=== PATIENT | female | born 1945 | race Caucasian/White ===

== ENCOUNTER 2019-11-12 18:11 | Emergency (ER) | payer MEDICARE, BC ==
--- NOTE | 2019-11-12 18:32 | EDM.PDOC ---
ED HPI GENERAL MEDICAL PROBLEM - General Chief Complaint: Cardiovascular Problem Stated Complaint: hypertension, vomiting Time Seen by Provider: 11/12/19 18:20 Source of Information: Reports: Patient, Family (Granddaughter, Cyndy), Old Records ([facility] chart/EMR) History Limitations: Reports: No Limitations - History of Present Illness INITIAL COMMENTS - FREE TEXT/NARRATIVE: The patient was brought to the emergency room via private automobile by her granddaughter for evaluation of non-specific nausea and recurrent emesis possibly secondary to food poisoning in the evening of 11/10/2019. Patient did eat some shrimp in [place] on that day with beginning nonspecific abdominal cramping associated with 6 episodes of emesis starting at about 11:30 AM on 11/10. She has not been able to tolerate solids since that time and did not take her medications today secondary to her emesis. She has been able to tolerate vandana ellie, although she did have one episode of emesis at 1500 hours this afternoon with no history of hematemesis, etc. The patient denies any current pain or discomfort. No recent history of abdominal pain, heartburn, diarrhea, melena, gross hematochezia, or any food intolerance, including fatty foods, etc. with 3 normal bowel movements yesterday. She denies any gross hematuria, colic, or other UTI symptoms. The patient denies any heart flutter, dizziness, orthostasis, orthopnea, diaphoresis, paresthesias, recent decreased exercise tolerance, or any other anginal-type symptoms, although she has had some nonspecific left chest "tickle" intermittently during the last few weeks, including at 3 PM this afternoon with no chest pain at this time. The patient also denies any recent fever, cough, wheezing, dyspnea, etc.. No history of possible COVID-19 exposure. Patient's blood pressure was elevated at 193/100 prior to arrival with this taken by her granddaughter, who is a nurse. Onset: Gradual Onset Date: 11/11/19 Onset Time: 11:30 Duration: Getting Worse Location: Reports: Chest, Abdomen. Denies: Head, Face, Neck, Back, Upper Extremity, Left, Upper Extremity, Right, Radiates to Quality: Reports: Ache, Same as Previous Episode Severity: Mild Improves with: Reports: None Worsens with: Reports: None Context: Reports: Other (As above). Denies: Sick Contact, Trauma Associated Symptoms: Reports: Chest Pain, Loss of Appetite, Nausea/Vomiting, Rash (Recent poison nay a couple weeks ago now resolved). Denies: Confusion, Cough, Diaphoresis, Fever/Chills, Headaches, Malaise, Shortness of Breath, Syncope, Weakness Treatments [employer]: Reports: Other (see below) (None) - Related Data Allergies Allergy/AdvReac Type Severity Reaction Status Date / Time Sulfa (Sulfonamide Allergy Cannot Verified 11/12/19 18:13 Antibiotics) Remember Home Meds: Home Meds Ascorbate Calcium [Vitamin C] 500 mg PO DAILY 09/02/13 [History] Aspirin [Amanda Chewable Aspirin] 81 mg PO DAILY 09/02/13 [History] Calcium Carb/Vitamin D3/Vit K1 [Viactiv Soft Chew] 2 each PO DAILY 09/02/13 [History] Ferrous Sulfate [Iron] 325 mg PO DAILY 09/02/13 [History] Multivit-Min/FA/Lycopene/Lut [Centrum Silver] 1 each PO DAILY 09/02/13 [History] Naproxen Sodium [Aleve] 440 mg PO DAILY 09/02/13 [History] [place]-3/DHA/Epa/Fish Oil [Fish Oil Dr 500 mg Softgel] 500 mg PO DAILY 09/02/13 [History] amLODIPine Besylate [Amlodipine Besylate] 5 mg PO DAILY 09/02/13 [History] cycloSPORINE [Restasis] 1 drop EYEBOTH BID 09/02/13 [History] Cholecalciferol (Vitamin D3) [Vitamin D3] 2 tab PO DAILY 11/12/19 [History] Magnesium Oxide [Magnesium] 1 tab PO DAILY 11/12/19 [History] Red Yeast Rice 2 cap PO DAILY 11/12/19 [History] Venlafaxine [Effexor XR] 1 cap PO ASDIRECTED 11/12/19 [History] Vit A/Vit C/Vit E/Zinc/Copper [Preservision] 2 tab PO DAILY 11/12/19 [History] Past Medical History HEENT History: Reports: Hard of Hearing, Impaired Vision, Other (See Below). Denies: Allergic Rhinitis, Cataract, Glaucoma, Macular Degeneration, Otitis Me hermelindo, Retinal Detachment Other HEENT History: Patient wears glasses. Dry eye syndrome. Mild to moderate presbycusis with no current hearing aid therapy. Cardiovascular History: Reports: High Cholesterol, Hypertension, Other (See Below). Denies: Afib, Aneurysm, Arrhythmia, Blood Clots/VTE/DVT, CAD, Cardiomyopathy, Heart Failure, Heart Murmur, MO, PVD, Syncope Other Cardiovascular History: Mild hyperlipidemia with excellent HDL currently diet controlled. Respiratory History: Reports: COPD, Other (See Below). Denies: Asthma, Bronchitis, Recurrent, Intubation, Previous, PE ( So I just have been getting occasional bronchitis), Pneumonia, Recurrent, Pneumothorax, Sleep Apnea, TB Other Respiratory History: Stable chest x-ray with no current medical therapy required. Gastrointestinal History: Reports: Colon Polyp, Diverticulosis, Other (See B amadeo). Denies: Celiac Disease, Cholelithiasis, Chronic Constipation, Chronic Diarrhea, Fecal Incontinence, Gastritis, GERD, GI Bleed, Inflammatory Bowel Disease, Irritable Bowel Syndrome, Jaundice Other Gastrointestinal History: Hyperplastic colonic polyp at 7 cm on 01/11/2009. Genitourinary History: Reports: None. Denies: Acute Renal Failure, Chronic Renal Insuffiency, Renal Calculus, Retention, Urinary, STD, Urinary Incontinence, UTI, Recurrent PLASTICATOR History: Reports: . Denies: Dysfunctional Uterine Bleeding, Endometriosis, Fibroids, Polycystic Ovaries, Spontaneous : 4 Para: 4 LMP (Approximate): Other (See Below) Other PLASTICATOR History: Menopause at about age 44. Full term without complications during pregnancies or deliveries Musculoskeletal History: Reports: Arthritis, Back Pain, Chronic, Fracture, Osteoarthritis, Osteoporosis, Other (See Below). Denies: Amputation, Gout, Neck Pain, Chronic, RA, SLE Other Musculoskeletal History: Moderate lumbar scoliosis with left-sided sciatica. Open tuft fracture of digit #2 of the left hand on 09/02/2013. Right ankle fracture in about 2009 with no surgery required. Neurological History: Reports: Headaches, Chronic, Migraines. Denies: Alzheimers Disease, Cerebral Aneurysms, Concussion, CVA, Head Trauma, MS, Neuropathy, Diabetic, Neuropathy, Peripheral, Parkinson's, Seizure, TIA Psychiatric History: Reports: Anxiety, Depression. Denies: Abuse, Victim of, ADD, ADHD, Addiction, Psych Hospitalization(s), Psychosis, PTSD, Suicide Attempt, Suicidal Ideation Endocrine/Metabolic History: Reports: Hypomagnesemia, Osteopenia, Osteoporosis. Denies: Diabetes, Gestational, Diabetes, Type I, Diabetes, Type II, Diabetes Mellitus, Type 3c, Hypothyroidism, IDDM Hematologic History: Reports: Anemia, Iron Deficiency. Denies: Blood Transfusion(s) Immunologic History: Reports: None. Denies: AIDS, HIV, SLE Oncologic (Cancer) History: Reports: None. Denies: Basal Cell Carcinoma, Breast, Cervix, Colon, Hodgkin's Lymphoma, Leukemia, Lymphoma, Malignant Melanoma, Non-Hodgkin's Lymphoma, Ovarian, Squamous Cell Carcinoma, Uterine Dermatologic History: Reports: None. Denies: Eczema, Psoriasis - Infectious Disease History Infectious Disease History: Reports: Chicken Pox, Measles, Mumps. Denies: C- Difficile, Meningitis, Mononucleosis, MRSA, Pertussis (Whooping Cough), Rheumatic Fever, Rubella, Scarlet Fever, Shingles, TB, VRE - Past Surgical History Head Surgeries/Procedures: Reports: None HEENT Surgical History: Reports: Oral Surgery, Other (See Below). Denies: Adenoidectomy, Eye Surgery, Laser Surgery, LASIK, Myringotomy w Tube(s), Naso- Sinus Surgery, Tonsillectomy Other HEENT Surgeries/Procedures: [place] teeth extraction x4 at about age 17 with additional tooth extractions. Cardiovascular Surgical History: Reports: None. Denies: Varicose Respiratory Surgical History: Reports: None. Denies: Thoracentesis GI Surgical History: Reports: Colonoscopy, Polypectomy, Other (See Below). Denies: Appendectomy, Cholecystectomy, EGD, Hernia, Abdominal, Hernia, Inguinal, Hernia Repair/Other Other GI Surgeries/Procedures: Colonoscopy on 01/11/2009. Female Surgical History: Reports: None. Denies: Breast Biopsy, Section, Hysterectomy, Salpingo-Oophorectomy, Tubal Ligation Endocrine Surgical History: Reports: None. Denies: Thyroid Biopsy Neurological Surgical History: Reports: None. Denies: C-Spine, Discectomy, Laminectomy, Lumbar Spine, Sacral Spine, Spinal Fusion, Thoracic Spine, Vertebroplasty Musculoskeletal Surgical History: Reports: Carpal Tunnel, Other (See Below). Denies: Arthroscopic Procedure, Ganglion Cyst, Joint Replacement, ORIF, Shoulder Replacement, Shoulder Surgery Other Musculoskeletal Surgeries/Procedures:: Right carpal tunnel release in about 2017. Oncologic Surgical History: Reports: None Dermatological Surgical History: Reports: None - Past Imaging History Past Imaging History: Reports: Carotid US (09/02/2017.), CAT Scan (CT scan of the head on 09/02/2017 and 10/09/2014.), DEXA Scan (02/21/2009.), Mammogram (Last mammogram on 10/08/2018.), Venous Doppler (Negative venous Doppler studies of the right leg on 11/13/2017.) Social & Family History - Tobacco Use Smoking Status *Q: Never Smoker Tobacco Use Within Last Twelve Months: No Used Tobacco, but Quit: No Smoking Cessation Information Provided To Patient: No Second Hand Smoke Exposure: No Second Hand Smoke Education Provided: No - Caffeine Use Caffeine Use: Reports: None. Denies: Coffee, Energy Drinks, Soda, Tea - Alcohol Use Alcohol Use History: Yes Days Per Week of Alcohol Use: 2 Number of Drinks Per Day: 1 Number of Drinks Per Day Comment: Usually beer. No previous DWIs, problems with alcohol abuse, etc. Total Drinks Per Week: 2 Alcohol Use in Last Twelve Months: Yes - Recreational Drug Use Recreational Drug Use: No Drug Use in Last 12 Months: No Recreational Drug Type: Denies: Amphetamines (Speed), Cocaine, Heroin, Inhalants (Glues, Solvents, Aerosols), LSD (Acid), Marijuana/Hashish, Methamphetamine, Oxycodone - Living Situation & Occupation Living situation: Reports: , with Family () Occupation: Retired (Retired grocery worker.) ED ROS GENERAL - Review of Systems Review Of Systems: Comprehensive ROS is negative, except as noted in HPI. ED EXAM, GENERAL - Physical Exam Exam: See Below Exam Limited By: No Limitations General Appearance: Alert, WD/WN, No Apparent Distress Eye Exam: Bilateral Eye: EOMI, Normal Inspection (Patient wearing glasses. No nystagmus), PERRL Ears: Normal External Exam, Normal Canal, Normal TMs, Hearing Loss (Mild to moderate bilateral presbycusis) Nose: Normal Inspection, Normal Mucosa, No Blood Throat/Mouth: Normal Inspection, Normal Lips, Normal Teeth (Multiple missing teeth), Normal Gums, Normal Oropharynx, Normal Voice, No Airway Compromise. No: Dysphagia, Perioral Cyanosis Head: Atraumatic, Normocephalic. No: Facial Swelling, Facial Tenderness, Sinus Tenderness Neck: Supple, Non-Tender, Full Range of Motion, Carotid Bruit (Mild bilateral carotid bruits). No: Lymphadenopathy (L), Lymphadenopathy (R), Thyromegaly Respiratory/Chest: No Respiratory Distress, Lungs Clear, Normal Breath Sounds, No Accessory Muscle Use, Chest Non-Tender. No: Pleural Rub, Retractions Cardiovascular: Normal Peripheral Pulses, Regular Rate, Rhythm, No Edema, No Gallop, No JVD, No Murmur, No Rub. No: Gallop/S3, Gallop/S4, Friction Rub Peripheral Pulses: 2+: Brachial (L), Brachial (R), Dorsalis Pedis (L), Dorsalis Pedis (R) GI/Abdominal: Soft, Non-Tender, No Organomegaly, No Distention, No Abnormal Bruit, No Mass, Abnormal Bowel Sounds (Mild diffuse increased bowel sounds not high-pitched in nature). No: Guarding, Rigid, Rebound (Female) Exam: Deferred Rectal (Female) Exam: Deferred Back Exam: Full Range of Motion, Other (Moderate lumbar scoliosis). No: CVA Tenderness (L), CVA Tenderness (R), Muscle Spasm, Paraspinal Tenderness, Vertebral Tenderness Extremities: Normal Inspection, Normal Range of Motion, Non-Tender, No Pedal Edema, Normal Capillary Refill. No: Marcel's Sign Neurological: Alert, Oriented, CN II-XII Intact, Normal Cognition, Normal Gait, Normal Reflexes (Negative Babinski's), No Motor/Sensory Deficits Psychiatric: Normal Affect, Normal Mood Skin Exam: Warm, Dry, Intact, Normal Color, Rash (Old mild evidence of poison nay over right radial distal region with no evidence of infection). No: Diaphoretic, Ecchymosis, Erythema, Wound/Incision Lymphatic: No Adenopathy EKG INTERPRETATION EKG Date: 11/12/19 Time: 18:50 Rhythm: NSR Rate (Beats/Min): 69 [place]: Normal (Left cardiac axis) P-Wave: Enlarged (Moderate diffuse biphasic P waves) QRS: Normal (Mild repolarization changes with QRS interval of 0.[address]-T: Normal QT: Normal [place]/PQ Interval: Extreme poor R wave progression in the anterior leads. Comparison: NA - No Prior EKG (No recent EKG for comparison) EKG Interpretation Comments: 1. No acute ischemic changes 2. Left atrial enlargement 3. Repolarization changes Course - Vital Signs Last Recorded V/S: Last Vital Signs Temp 36.8 C 11/12/19 18:23 Pulse 72 11/12/19 19:59 Resp 17 11/12/19 19:59 BP 164/88 H 11/12/19 19:59 Pulse Ox 100 11/12/19 19:59 Vital Signs - 24 hr 11/12/19 11/12/19 11/12/19 18:23 18:30 19:58 Temperature [ 36.8 C Oral] Pulse, 79 75 72 Peripheral [ Pulse Oximetry] Respiratory 18 Rate Blood Pressure 196/88 H 162/84 H 164/99 H [Right Upper Arm] O2 Sat by Pulse 99 99 100 Oximetry 11/12/19 19:59 Temperature [ Oral] Pulse, 72 Peripheral [ Pulse Oximetry] Respiratory 17 Rate Blood Pressure 164/88 H [Right Upper Arm] O2 Sat by Pulse 100 Oximetry - Orders/Labs/Meds Orders: Active Orders 24 hr Category Date Time Status Cardiac Monitoring [RC] . DIRECTED Care 11/12/19 18:35 Active EKG Documentation Completion [RC] ASDIRECTED Care 11/12/19 18:35 Active Peripheral IV Care [RC] . DIRECTED Care 11/12/19 18:34 Active Nothing Per Oral Diet [DIET] Diet 11/12/19 Breakfast Active Abdomen Series w Chest 1V [CR] Stat Exams 11/12/19 18:33 Taken Sodium Chloride 0.9% [Saline Flush] Med 11/12/19 18:33 Active 10 ml FLUSH ASDIRECTED PRN Obtain Past Medical Record [OM.PC] Urgent Oth 11/12/19 18:33 Active Peripheral IV Insertion Adult [OM.PC] Stat Oth 11/12/19 18:33 Ordered Resuscitation Status Stat Resus Stat 11/12/19 18:33 Ordered Medication Orders Sodium Chloride (Saline Flush) 10 ml FLUSH ASDIRECTED PRN PRN Reason: Keep Vein Open Last Admin: 11/12/19 18:50 Dose: 10 ml Documented by: Admin: 11/12/19 18:44 Dose: 10 ml Documented by: SILVESTRE Labs: Laboratory Tests 11/12/19 11/12/19 11/12/19 Range/Units 18:45 18:45 18:45 WBC 6.3 (4.0-10.2) K/uL RBC 4.37 (3.77-5.09) M/uL Hgb 12.7 (11.7-15.5) g/dL Hct 38.1 (34.0-46.0) % MCV 87.2 (84.0-98.0) fL MCH 29.1 (28.2-33.3) pg MCHC 33.3 (31.7-36.0) g/dL RDW 12.5 (11.2-14.1) % Plt Count 261 (150-350) K/uL Neut % (Auto) 64.2 (45.0-80.0) % Lymph % (Auto) 25.4 (10.0-50.0) % [place] % (Auto) 7.5 (2.0-14.0) % Eos % (Auto) 2.4 (0.0-5.0) % Baso % (Auto) 0.5 (0.0-2.0) % Neut # (Auto) 4.03 (1.40-7.00) K/uL Lymph # (Auto) 1.59 (0.50-3.50) K/uL [place] # (Auto) 0.47 (0.00-1.00) K/uL Eos # (Auto) 0.15 (0.00-0.50) K/uL Baso # (Auto) 0.03 (0.00-0.20) K/uL PT 10.5 (9.5-12.0) SEC INR 1.0 APTT 23.7 L (24.5-32.8) SEC Sodium (136-145) mmol/L Potassium (3.5-5.1) mmol/L Chloride (98-107) mmol/L Carbon Dioxide (21.0-32.0) mmol/L BUN (7-18) mg/dL Creatinine (0.51-1.17) mg/dL Est Cr Clr Drug Dosing mL/min Estimated GFR (MDRD) mL/min Glucose (74-106) mg/dL Lactic Acid (0.4-2.0) mmol/L Uric Acid (2.6-7.2) mg/dL Calcium (8.5-10.1) mg/dL Magnesium (1.8-2.4) mg/dL Total Bilirubin (0.2-1.0) mg/dL AST (15-37) U/L ALT (12-78) U/L Alkaline Phosphatase (46-116) IU/L Creatine Kinase (26-308) U/L Creatine Kinase Index (0.0-2.5) % CK-MB (CK-2) (0.00-3.60) ng/mL Troponin I (0.000-0.056) ng/mL NT-Pro-B Natriuret Pep (0-125) pg/mL Total Protein (6.4-8.2) g/dL Albumin (3.4-5.0) g/dL Amylase 36 (25-115) U/L Lipase (73-393) U/L 11/12/19 11/12/19 Range/Units 18:45 18:45 WBC (4.0-10.2) K/uL RBC (3.77-5.09) M/uL Hgb (11.7-15.5) g/dL Hct (34.0-46.0) % MCV (84.0-98.0) fL MCH (28.2-33.3) pg MCHC (31.7-36.0) g/dL RDW (11.2-14.1) % Plt Count (150-350) K/uL Neut % (Auto) (45.0-80.0) % Lymph % (Auto) (10.0-50.0) % [place] % (Auto) (2.0-14.0) % Eos % (Auto) (0.0-5.0) % Baso % (Auto) (0.0-2.0) % Neut # (Auto) (1.40-7.00) K/uL Lymph # (Auto) (0.50-3.50) K/uL [place] # (Auto) (0.00-1.00) K/uL Eos # (Auto) (0.00-0.50) K/uL Baso # (Auto) (0.00-0.20) K/uL PT (9.5-12.0) SEC INR APTT (24.5-32.8) SEC Sodium 140 (136-145) mmol/L Potassium 3.9 (3.5-5.1) mmol/L Chloride 103 (98-107) mmol/L Carbon Dioxide 28.7 (21.0-32.0) mmol/L BUN 12 (7-18) mg/dL Creatinine 0.75 (0.51-1.17) mg/dL Est Cr Clr Drug Dosing 48.91 mL/min Estimated GFR (MDRD) > 60 mL/min Glucose 113 H (74-106) mg/dL Lactic Acid 1.0 (0.4-2.0) mmol/L Uric Acid 2.9 (2.6-7.2) mg/dL Calcium 9.2 (8.5-10.1) mg/dL Magnesium 2.2 (1.8-2.4) mg/dL Total Bilirubin 0.3 (0.2-1.0) mg/dL AST 16 (15-37) U/L ALT 24 (12-78) U/L Alkaline Phosphatase 95 (46-116) IU/L Creatine Kinase 73 (26-308) U/L Creatine Kinase Index 2.5 (0.0-2.5) % CK-MB (CK-2) 1.80 (0.00-3.60) ng/mL Troponin I 0.000 (0.000-0.056) ng/mL NT-Pro-B Natriuret Pep 89 (0-125) pg/mL Total Protein 7.3 (6.4-8.2) g/dL Albumin 3.9 (3.4-5.0) g/dL Amylase (25-115) U/L Lipase 63 L (73-393) U/L Meds: Medications Generic Name Dose Route Start Last Admin Trade Name Freq PRN Reason Stop Dose Admin Sodium Chloride 10 ml 11/12/19 18:33 11/12/19 18:50 Saline Flush FLUSH 10 ml ASDIRECTED PRN Administration Keep Vein Open Discontinued Medications Generic Name Dose Route Start Last Admin Trade Name Freq PRN Reason Stop Dose Admin Famotidine 40 mg 11/12/19 18:33 11/12/19 18:43 Pepcid IVPUSH 11/12/19 18:34 40 mg ONETIME ONE Administration Lactated Ringer's 1,000 mls @ 999 mls/hr 11/12/19 18:33 11/12/19 18:37 Ringers, Lactated IV 11/12/19 19:33 999 mls/hr .BOLUS ONE Administration Ondansetron HCl 4 mg 11/12/19 18:33 11/12/19 18:43 Zofran IVPUSH 11/12/19 18:34 4 mg ONETIME ONE Administration Pantoprazole Sodium 40 mg 11/12/19 18:33 11/12/19 18:43 Protonix Iv IVPUSH 11/12/19 18:34 40 mg ONETIME ONE Administration - Radiology Interpretation Free Text/Narrative:: customer professional shows normal sinus rhythm in the 60s to 70s with no ectopy or arrhythmia. Acute abdominal x-ray shows evidence of mild to moderate COPD changes with no pulmonary infiltrates, pneumothorax, cardiomegaly, CHF, etc. No free air, ileus, or obstruction with moderate stool noted. Moderate osteoarthritic and osteoporotic changes with moderate mostly lumbar scoliosis. Departure - Departure Time of Disposition: 20:25 Disposition: Home, Self-Care 01 Condition: Good Clinical Impression: Mixed anxiety depressive disorder Nausea and vomiting Qualifiers: Vomiting type: unspecified Vomiting Intractability: intractable Qualified Code(s): R11.2 - Nausea with vomiting, unspecified Hypertension Qualifiers: Hypertension type: essential hypertension Qualified Code(s): I10 - Essential (primary) hypertension Hyperlipidemia Qualifiers: Hyperlipidemia type: mixed hyperlipidemia Qualified Code(s): E78.2 - Mixed hyperlipidemia COPD (chronic obstructive pulmonary disease) Qualifiers: COPD type: emphysema Emphysema type: panlobular Qualified Code(s): J43.1 - Panlobular emphysema Osteoarthritis Qualifiers: Osteoarthritis location: multiple joints Osteoarthritis type: primary Qualified Code(s): M89.49 - Other hypertrophic osteoarthropathy, multiple sites Instructions: Food Poisoning, [id number] Referrals: Chika Awad PA [Primary Care Provider] - Forms: ED Department Discharge Additional Instructions: 1. Follow up with your regular provider in 10-14 days as needed, if symptoms persist. Bring these discharge instructions with you to that visit.. 2. Institute diet including encouragement of oral fluids such as sports drinks, etc. for 24-48 hours as directed. Advance to heart healthy, diverticulosis diet as tolerated thereafter. 3. Go ahead and take your Norvasc when you get home than at noon tomorrow, then every a.m. thereafter as before. 4. Immediately after this visit verify that your cellular telephone's voicemail has been activated and is empty. Also verify that your home telephone's answering machine is operating properly and has space to receive messages. Note that it is sometimes necessary for us to be able to contact you at a later date to discuss your medical care. 5. Please remember that we are ALWAYS here for you and want to answer any questions you may have. Feel free to call the hospital any time and we call you back KAREL. Sepsis Event Note (ED) - Evaluation Sepsis Screening Result: No Definite Risk - Focused Exam Vital Signs: Vital Signs Temp Pulse Resp BP Pulse Ox 11/12/19 19:59 72 17 164/88 H 100 11/12/19 19:58 72 164/99 H 100 11/12/19 18:30 75 162/84 H 99 11/12/19 18:23 36.8 C 79 18 196/88 H 99 - Problem List & Annotations (1) Nausea and vomiting SNOMED Code(s): 74298456 Code(s): R11.2 - NAUSEA WITH VOMITING, UNSPECIFIED Status: Acute Priority: High Current Visit: Yes Onset Date: 11/11/19 Annotation/Comment:: Overall good results with treatment in the emergency room as above. Aggressive IV hydration with 1 L IV bolus of lactated Ringer's. Symptoms improved prior to discharge with bland diet initially. Likely food poisoning with information provided. Qualifiers: Vomiting type: unspecified Vomiting Intractability: intractable Qualified Code(s): R11.2 - Nausea with vomiting, unspecified (2) Hypertension SNOMED Code(s): 06967887 Code(s): I10 - ESSENTIAL (PRIMARY) HYPERTENSION Status: Chronic Priority: High Current Visit: Yes Annotation/Comment:: Note the patient was unable to take her Norvasc this morning. Instructions given for reinitiation of this medication KAREL after returning to home as per discharge instructions. Qualifiers: Hypertension type: essential hypertension Qualified Code(s): I10 - Essential (primary) hypertension (3) Hyperlipidemia SNOMED Code(s): 29246296 Code(s): E78.5 - HYPERLIPIDEMIA, UNSPECIFIED Status: Chronic Priority: Medium Current Visit: Yes Annotation/Comment:: Currently diet controlled. Qualifiers: Hyperlipidemia type: mixed hyperlipidemia Qualified Code(s): E78.2 - Mixed hyperlipidemia (4) COPD (chronic obstructive pulmonary disease) SNOMED Code(s): 61441660 Code(s): J44.9 - CHRONIC OBSTRUCTIVE PULMONARY DISEASE, UNSPECIFIED Status: Chronic Priority: Medium Current Visit: Yes Annotation/Comment:: No recent fever or bronchitic type symptoms. No current medical therapy. Qualifiers: COPD type: emphysema Emphysema type: panlobular Qualified Code(s): J43.1 - Panlobular emphysema (5) Osteoarthritis SNOMED Code(s): 673538394 Code(s): M19.90 - UNSPECIFIED OSTEOARTHRITIS, UNSPECIFIED SITE Status: Chronic Priority: Medium Current Visit: Yes Annotation/Comment:: Stable by history Qualifiers: Osteoarthritis location: multiple joints Osteoarthritis type: primary Qualified Code(s): M89.49 - Other hypertrophic osteoarthropathy, multiple sites (6) Mixed anxiety depressive disorder SNOMED Code(s): 499901538 Code(s): F41.8 - OTHER SPECIFIED ANXIETY DISORDERS Status: Chronic Priority: Medium Current Visit: Yes Annotation/Comment:: Stable by history - Problem List Review Problem List Initiated/Reviewed/Updated: Yes - My Orders Last 24 Hours: My Active Orders 11/12/19 Breakfast Nothing Per Oral Diet [DIET] 11/12/19 18:33 Abdomen Series w Chest 1V [CR] Stat Sodium Chloride 0.9% [Saline Flush] 10 ml FLUSH ASDIRECTED PRN Obtain Past Medical Record [OM.PC] Urgent Peripheral IV Insertion Adult [OM.PC] Stat Resuscitation Status Stat 11/12/19 18:34 Peripheral IV Care [RC] . DIRECTED 11/12/19 18:35 Cardiac Monitoring [RC] . DIRECTED EKG Documentation Completion [RC] ASDIRECTED - Assessment/Plan Last 24 Hours: My Active Orders 11/12/19 Breakfast Nothing Per Oral Diet [DIET] 11/12/19 18:33 Abdomen Series w Chest 1V [CR] Stat Sodium Chloride 0.9% [Saline Flush] 10 ml FLUSH ASDIRECTED PRN Obtain Past Medical Record [OM.PC] Urgent Peripheral IV Insertion Adult [OM.PC] Stat Resuscitation Status Stat 11/12/19 18:34 Peripheral IV Care [RC] . DIRECTED 11/12/19 18:35 Cardiac Monitoring [RC] . DIRECTED EKG Documentation Completion [RC] ASDIRECTED Assessment:: As above Plan: As above. Extensive precautions were given to the patient and her granddaughter, who are in agreement with the treatment plan. See Patient Instructions for further treatment and plan.
[2019-11-12] MEDS ORDERED: Lactated Ringers 1,000 ML IV ONE (18:33)
[2019-11-12] MEDS ORDERED: Ondansetron 4 MG/2 ML SDV IVPUSH ONE (18:33)
[2019-11-12] MEDS ORDERED: Pantoprazole 40 MG Vial IVPUSH ONE (18:33)
[2019-11-12] MEDS ORDERED: Famotidine 20 MG/2 ML SDV IVPUSH ONE (18:33)
[2019-11-12] MEDS: Sodium Chloride 0.9% 10 ML Syringe FLUSH PRN ×2 (18:44→18:50)
[2019-11-12 19:16] LABS: PTT,PARTIAL THROMBOPLSTIN TIME 23.7 SEC (24.5-32.8)
[2019-11-12 19:17] LABS: CHLORIDE,CL 103 mmol/L (98-107); SODIUM,NA 140 mmol/L (136-145)
== END 2019-11-12 20:25 | disposition home or self-care (01) ==
LOC: LL.ED 18:11
DX: I10 Essential (primary) hypertension (principal); F41.8 Other specified anxiety disorders; R11.2 Nausea with vomiting, unspecified; E78.2 Mixed hyperlipidemia; J43.1 Panlobular emphysema; M89.49 Other hypertrophic osteoarthropathy, multiple sites; F41.9 Anxiety disorder, unspecified; F32.9 Major depressive disorder, single episode, unspecified; D64.9 Anemia, unspecified; Z88.2 Allergy status to sulfonamides; Z79.82 Long term (current) use of aspirin; Z79.899 Other long term (current) drug therapy
CPT/HCPCS: 36415; 74022; 80053; 82150; 82550; 82553; 83605; 83690; 83735; 83880; 84484; 84550; 85025; 85610; 85730; 93005; 96361; 96374; 96375; 99284-25; C9113; J2405; J3490; J7120

== ENCOUNTER 2021-02-02 17:22 | Emergency (ER) | payer MEDICARE, BC ==
[2021-02-02] MEDS ORDERED: Bacitracin Oint 1 GM U/D Packet TOP ONE (18:20)
--- NOTE | 2021-02-02 18:23 | EDM.PDOC ---
ED HPI GENERAL MEDICAL PROBLEM - General Chief Complaint: Laceration Stated Complaint: laceration Time Seen by Provider: 02/02/21 17:50 Source of Information: Reports: Patient History Limitations: Reports: No Limitations - History of Present Illness INITIAL COMMENTS - FREE TEXT/NARRATIVE: Left thumb laceration due to making contact with a workshop saw while patient was wood working. Denies other injuries. No loss of function/numbness. Tetanus updated 2013. 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) Left Finger-Thumb Pain Score (Numeric/FACES): 0 - Related Data Allergies Allergy/AdvReac Type Severity Reaction Status Date / Time Sulfa (Sulfonamide Allergy Cannot Verified 02/02/21 17:23 Antibiotics) Remember Home Meds: Home Meds Ascorbate Calcium [Vitamin C] 500 mg PO DAILY 09/02/13 [History] Aspirin [Amanda Chewable Aspirin] 81 mg PO DAILY 09/02/13 [History] Calcium Carb/Vitamin D3/Vit K1 [Viactiv Soft Chew] 2 each PO DAILY 09/02/13 [History] Ferrous Sulfate [Iron] 325 mg PO DAILY 09/02/13 [History] Multivit-Min/FA/Lycopene/Lut [Centrum Silver] 1 each PO DAILY 09/02/13 [History] Naproxen Sodium [Aleve] 440 mg PO DAILY 09/02/13 [History] Grahn-3/DHA/Epa/Fish Oil [Fish Oil Dr 500 mg Softgel] 1,000 mg PO DAILY 09/02/13 [History] amLODIPine Besylate [Amlodipine Besylate] 5 mg PO DAILY 09/02/13 [History] cycloSPORINE [Restasis] 1 drop EYEBOTH BID 09/02/13 [History] Cholecalciferol (Vitamin D3) [Vitamin D3] 2 tab PO DAILY 11/12/19 [History] Magnesium Oxide [Magnesium] 1 tab PO DAILY 11/12/19 [History] Red Yeast Rice 1 cap PO DAILY 11/12/19 [History] Venlafaxine [Effexor XR] 1 cap PO ASDIRECTED 11/12/19 [History] Vit A/Vit C/Vit E/Zinc/Copper [Preservision] 2 tab PO DAILY 11/12/19 [History] Carboxymethylcellulose Sodium [Refresh Plus 0.5% Ophth Soln] 1 each OP DAILY 11/23/19 [History] Past Medical History HEENT History: Reports: Hard of Hearing, Impaired Vision, Other (See Below). Denies: Allergic Rhinitis, Cataract, Glaucoma, Macular Degeneration, Otitis Media, Retinal Detachment Other HEENT History: Patient wears glasses. Dry eye syndrome. Mild to moderate presbycusis with no current hearing aid therapy. Cardiovascular History: Reports: High Cholesterol, Hypertension, Other (See Below) Other Cardiovascular History: Mild hyperlipidemia with excellent HDL currently diet controlled. Respiratory History: Reports: COPD, Other (See Below). Denies: Asthma, Bronchitis, Recurrent, Intubation, Previous, PE ( So I just have been getting occasional bronchitis), Pneumonia, Recurrent, Pneumothorax, Sleep Apnea, TB Other Respiratory History: Stable chest x-ray with no current medical therapy required. Gastrointestinal History: Reports: Colon Polyp, Diverticulosis, Other (See Below). Denies: Celiac Disease, Cholelithiasis, Chronic Constipation, Chronic Diarrhea, Fecal Incontinence, Gastritis, GERD, GI Bleed, Inflammatory Bowel Disease, Irritable Bowel Syndrome, Jaundice Other Gastrointestinal History: Hyperplastic colonic polyp at 7 cm on 01/11/2009. Genitourinary History: Reports: None. Denies: Acute Renal Failure, Chronic Renal Insuffiency, Renal Calculus, Retention, Urinary, STD, Urinary Incontinence, UTI, Recurrent TEA TASTER History: Reports: . Denies: Dysfunctional Uterine Bleeding, Endometriosis, Fibroids, Polycystic Ovaries, Spontaneous Other TEA TASTER History: Menopause at about age 44. Full term without complications during pregnancies or deliveries Musculoskeletal History: Reports: Arthritis, Back Pain, Chronic, Fracture, Osteoarthritis, Osteoporosis, Other (See Below). Denies: Amputation, Gout, Neck Pain, Chronic, RA, SLE Other Musculoskeletal History: Moderate lumbar scoliosis with left-sided sciatica. Open tuft fracture of digit #2 of the left hand on 09/02/2013. Right ankle fracture in about 2009 with no surgery required. Neurological History: Reports: Headaches, Chronic, Migraines. Denies: Alzheimers Disease, Cerebral Aneurysms, Concussion, CVA, Head Trauma, MS, Neuropathy, Diabetic, Neuropathy, Peripheral, Parkinson's, Seizure, TIA Psychiatric History: Reports: Anxiety, Depression. Denies: Abuse, Victim of, ADD, ADHD, Addiction, Psych Hospitalization(s), Psychosis, PTSD, Suicide Attempt, Suicidal Ideation Endocrine/Metabolic History: Reports: Hypomagnesemia, Osteopenia, Osteoporosis. Denies: Diabetes, Gestational, Diabetes, Type I, Diabetes, Type II, Diabetes Mellitus, Type 3c, Hypothyroidism, IDDM Hematologic History: Reports: Anemia, Iron Deficiency. Denies: Blood Transfusion(s) Immunologic History: Reports: None. Denies: AIDS, HIV, SLE Oncologic (Cancer) History: Reports: None. Denies: Basal Cell Carcinoma, Breast, Cervix, Colon, Hodgkin's Lymphoma, Leukemia, Lymphoma, Malignant Melanoma, Non-Hodgkin's Lymphoma, Ovarian, Squamous Cell Carcinoma, Uterine Dermatologic History: Reports: None. Denies: Eczema, Psoriasis - Infectious Disease History Infectious Disease History: Reports: Chicken Pox, Measles, Mumps. Denies: C- Difficile, Meningitis, Mononucleosis, MRSA, Pertussis (Whooping Cough), Rheumatic Fever, Rubella, Scarlet Fever, Shingles, TB, VRE - Past Surgical History GI Surgical History: Reports: Colonoscopy, Polypectomy, Other (See Below) Other GI Surgeries/Procedures: Colonoscopy on 01/11/2009. - Past Imaging History Past Imaging History: Reports: Carotid US (09/02/2017.), CAT Scan (CT scan of the head on 09/02/2017 and 10/09/2014.), DEXA Scan (02/21/2009.), Mammogram (Last mammogram on 10/08/2018.), Venous Doppler (Negative venous Doppler studies of the right leg on 11/13/2017.) Social & Family History - Caffeine Use Caffeine Use: Reports: None. Denies: Coffee, Energy Drinks, Soda, Tea - Living Situation & Occupation Living situation: Reports: , with Family () Occupation: Retired (Retired grocery bagger.) ED ROS GENERAL - Review of Systems Review Of Systems: Comprehensive ROS is negative, except as noted in HPI. (no acute changes other than the new laceration) ED EXAM, SKIN/RASH Exam: See Below Exam Limited By: No Limitations General Appearance: Alert, WD/WN, No Apparent Distress Eye Exam: Bilateral Eye: EOMI, PERRL Ears: Hearing Grossly Normal Nose: No: Nasal Deformity, Nasal Swelling, Nasal Drainage Throat/Mouth: Normal Lips, Normal Voice, No Airway Compromise Head: Atraumatic, Normocephalic Neck: Supple Respiratory/Chest: No Respiratory Distress Cardiovascular: Normal Peripheral Pulses (left hand) Extremities: Normal Range of Motion, Normal Capillary Refill Neurological: Alert, Oriented, Normal Cognition, Normal Gait, No Motor/Sensory Deficits Psychiatric: Normal Affect, Normal Mood Skin: Warm, Other (laceration noted left thumb) ED SKIN PROCEDURES - Laceration/Wound Repair Left Ventral Digit - 1st (Thumb) Appearance: Subcutaneous, Linear, Clean Distal NVT: Neuro & Vascular Intact, No Tendon Injury Anesthetic Type: Local Local Anesthesia - Lidocaine (Xylocaine): 1% Plain Local Anesthetic Volume: 2cc Skin Prep: Providone-Iodine (Betadine), Saline Exploration/Debridement/Repair: No Foreign Material Found Closed with: Sutures Lac/Wound length In cm: 2 Suture Size: 4-0 Suture Type: Nylon, Interrupted (2), Mattress (1) Sterile Dressing Applied: Nurse Tetanus Status Addressed: Yes Complications: No Course - Vital Signs Last Recorded V/S: Last Vital Signs Temp 35.7 C L 02/02/21 17:30 Pulse 92 02/02/21 17:30 Resp 16 02/02/21 17:30 BP 156/81 H 02/02/21 17:30 Pulse Ox 99 02/02/21 17:30 - Orders/Labs/Meds Meds: Medications Discontinued Medications Generic Name Dose Route Start Last Admin Trade Name Freq PRN Reason Stop Dose Admin Bacitracin 1 dose 02/02/21 18:20 Bacitracin Oint 1 Gm U/D Packet TOP 02/02/21 18:21 ONETIME ONE Lidocaine HCl 5 ml 02/02/21 17:58 Lidocaine 1% 5 Ml Sdv INJECT 02/02/21 17:59 ONETIME ONE - Re-Assessments/Exams Free Text/Narrative Re-Assessment/Exam: 02/02/21 18:28 Laceration repaired/wound margins brought closer together. Unable to get skin to meet up in mid portion of laceration but positioning of skin edges much improved. Wound care reviewed. Sutures out in 10 days. Departure - Departure Time of Disposition: 18:20 Disposition: Home, Self-Care 01 Condition: Good Clinical Impression: Laceration of left thumb without complication Qualifiers: Encounter type: initial encounter Qualified Code(s): S61.012A - Laceration without foreign body of left thumb without damage to nail, initial encounter - Discharge Information *PRESCRIPTION DRUG MONITORING PROGRAM REVIEWED*: Not Applicable *COPY OF PRESCRIPTION DRUG MONITORING REPORT IN PATIENT WEI: Not Applicable Instructions: Laceration Care, Adult, [id number] Referrals: Chika Awad PA [Primary Care Provider] - Forms: ED Department Discharge Additional Instructions: Apply bacitracin to wound as it heals twice a day. Keep area clean/dry. Sutures out Feb 11. Follow up earlier if you have problems/concerns such as signs of infection! Sepsis Event Note (ED) - Evaluation Sepsis Screening Result: No Definite Risk - Focused Exam Vital Signs: Vital Signs Temp Pulse Resp BP Pulse Ox 02/02/21 17:30 35.7 C L 92 16 156/81 H 99
== END 2021-02-02 18:25 | disposition home or self-care (01) ==
LOC: LL.ED 17:22
DX: S61.012A Laceration without foreign body of left thumb without damage to nail, initial encounter (principal); I10 Essential (primary) hypertension; J44.9 Chronic obstructive pulmonary disease, unspecified; M19.90 Unspecified osteoarthritis, unspecified site; D64.9 Anemia, unspecified; Z88.2 Allergy status to sulfonamides; Z79.82 Long term (current) use of aspirin; Z79.899 Other long term (current) drug therapy; W23.0XXA Caught, crushed, jammed, or pinched between moving objects, initial encounter; Y92.59 Other trade areas as the place of occurrence of the external cause
CPT/HCPCS: 12001; 99282-25; 99283

== ENCOUNTER 2021-06-28 14:53 | Emergency (ER) | payer BC, MEDICARE ==
[2021-06-28] MEDS ORDERED: Bacitracin/Neomycin/Polymyxin B Oint 0.9 GM U/D Packet TOP ONE (15:20)
== END 2021-06-28 15:30 | disposition home or self-care (01) ==
LOC: LL.ED 14:53
DX: S61.213A Laceration without foreign body of left middle finger without damage to nail, initial encounter (principal); E78.00 Pure hypercholesterolemia, unspecified; I10 Essential (primary) hypertension; Z88.2 Allergy status to sulfonamides; Z79.82 Long term (current) use of aspirin; W27.0XXA Contact with workbench tool, initial encounter; Y92.009 Unspecified place in unspecified non-institutional (private) residence as the place of occurrence of the external cause; Y99.0 Civilian activity done for income or pay
CPT/HCPCS: 73140-F7; 99283; 99283-25

== ENCOUNTER 2023-02-18 17:49 | Emergency (ER) | payer MEDICARE ==
[2023-02-18] MEDS ORDERED: Sodium Chloride 0.9% 10 ML Syringe FLUSH PRN (18:08)
[2023-02-18 18:23] LABS: BASOPHILS ABSOLUTE AUTO 0.01 K/uL (0.00-0.20); BASOPHILS PERCENT AUTO 0.2 % (0.0-2.0); EOSINOPHILS ABSOLUTE AUTO 0.13 K/uL (0.00-0.50); EOSINOPHILS PERCENT AUTO 2.1 % (0.0-5.0); HEMATOCRIT 34.8 % (34.0-46.0); HEMOGLOBIN 11.8 g/dL (11.7-15.5); LYMPHOCYTES ABSOLUTE AUTO 1.24 K/uL (0.50-3.50); MEAN CORPUSCULAR HEMOGLOBIN 29.5 pg (28.2-33.3); MEAN CORPUSCULAR HGB CONC 33.9 g/dL (31.7-36.0); MONOCYTES ABSOLUTE AUTO 0.54 K/uL (0.00-1.00); MONOCYTES PERCENT AUTO 8.7 % (2.0-14.0); NEUTROPHILS ABSOLUTE AUTO 4.29 K/uL (1.40-7.00); PLATELET COUNT,PLT 257 K/uL (150-350); RED CELL DISTRIBUTION WIDTH 12.6 % (11.2-14.1); WHITE BLOOD CELL COUNT,WBC 6.2 K/uL (4.0-10.2)
[2023-02-18 19:06] LABS: ALANINE AMINOTRANSFERASE,ALT 24 U/L (12-78); ALKALINE PHOSPHATASE 61 IU/L (46-116); ASPARTATE AMNIOTRANSFERASE,AST 18 U/L (15-37); BILIRUBIN TOTAL 0.4 mg/dL (0.2-1.0); BLOOD UREA NITROGEN,BUN 30 mg/dL (7-18); CALCIUM 9.3 mg/dL (8.5-10.1); CARBON DIOXIDE,CO2 24.8 mmol/L (21.0-32.0); CHLORIDE,CL 102 mmol/L (98-107); CREATININE 0.74 mg/dL (0.51-1.17); GLUCOSE RANDOM 103 mg/dL (70-99); POTASSIUM,K 3.4 mmol/L (3.5-5.1); PRO B-TYPE NATRIUR PEPT,BNPPRO 119 pg/mL (0-125); PROTEIN TOTAL,TP 6.8 g/dL (6.4-8.2); SODIUM,NA 138 mmol/L (136-145)
[2023-02-18 19:08] LABS: ANION GAP 14.6 meq/L (7-15); ESTIMATED GFR 83 mL/min (>=60)
[2023-02-18] MEDS: Potassium Bicarbonate/Cit Ac 20 MEQ Effervescent Tab PO ONE (19:15)
== END 2023-02-18 19:25 | disposition home or self-care (01) ==
LOC: LL.ED 17:49
DX: R07.89 Other chest pain (principal); I10 Essential (primary) hypertension; M19.90 Unspecified osteoarthritis, unspecified site; Z88.2 Allergy status to sulfonamides; Z79.82 Long term (current) use of aspirin; Z79.899 Other long term (current) drug therapy
CPT/HCPCS: 36415; 71046; 80053; 83880; 84484; 85025; 93005; 93010; 99284; 99285; A9270-GY

== ENCOUNTER 2023-04-22 08:15 | Emergency (ER) | payer BC, MEDICARE ==
[2023-04-22 08:50] LABS: BASOPHILS ABSOLUTE AUTO 0.01 K/uL (0.00-0.20); BASOPHILS PERCENT AUTO 0.2 % (0.0-2.0); EOSINOPHILS ABSOLUTE AUTO 0.06 K/uL (0.00-0.50); EOSINOPHILS PERCENT AUTO 1.4 % (0.0-5.0); HEMOGLOBIN 13.4 g/dL (11.7-15.5); LYMPHOCYTES ABSOLUTE AUTO 0.81 K/uL (0.50-3.50); LYMPHOCYTES PERCENT AUTO 18.3 % (10.0-50.0); MEAN CORPUSCULAR HEMOGLOBIN 29.1 pg (28.2-33.3); MEAN CORPUSCULAR HGB CONC 33.5 g/dL (31.7-36.0); MONOCYTES ABSOLUTE AUTO 0.37 K/uL (0.00-1.00); MONOCYTES PERCENT AUTO 8.4 % (2.0-14.0); NEUTROPHILS ABSOLUTE AUTO 3.18 K/uL (1.40-7.00); NEUTROPHILS PERCENT AUTO 71.7 % (45.0-80.0); PLATELET COUNT,PLT 281 K/uL (150-350); RED CELL DISTRIBUTION WIDTH 12.7 % (11.2-14.1); WHITE BLOOD CELL COUNT,WBC 4.4 K/uL (4.0-10.2)
[2023-04-22 09:12] LABS: ALANINE AMINOTRANSFERASE,ALT 32 U/L (12-78); ALBUMIN 3.9 g/dL (3.4-5.0); ALKALINE PHOSPHATASE 62 IU/L (46-116); ANION GAP 11.5 meq/L (7-15); ASPARTATE AMNIOTRANSFERASE,AST 15 U/L (15-37); BILIRUBIN TOTAL 0.6 mg/dL (0.2-1.0); BLOOD UREA NITROGEN,BUN 16 mg/dL (7-18); CALCIUM 9.4 mg/dL (8.5-10.1); CARBON DIOXIDE,CO2 26.5 mmol/L (21.0-32.0); CHLORIDE,CL 101 mmol/L (98-107); CREATININE 0.97 mg/dL (0.51-1.17); ESTIMATED GFR 59 mL/min (>=60); GLUCOSE RANDOM 108 mg/dL (70-99); POTASSIUM,K 3.9 mmol/L (3.5-5.1); PROTEIN TOTAL,TP 7.5 g/dL (6.4-8.2); SODIUM,NA 139 mmol/L (136-145)
[2023-04-22 09:14] LABS: INR 1.1 (0.9-1.1); PROTHROMBIN TIME 10.8 SEC (9.0-11.1)
[2023-04-22 10:06] LABS: APPEARANCE,URINE CLEAR; BILIRUBIN,URINE NEGATIVE (NEGATIVE); COLOR,URINE YELLOW; GLUCOSE,URINE NEGATIVE (NEGATIVE); KETONES,URINE NEGATIVE (NEGATIVE); LEUKOCYTE ESTERASE,URINE NEGATIVE (NEGATIVE); NITRITE,URINE NEGATIVE (NEGATIVE); OCCULT BLOOD,URINE NEGATIVE (NEGATIVE); PROTEIN,URINE NEGATIVE (NEGATIVE); UROBILINOGEN,URINE 0.2 E.U./dL (0.2-1.0)
== END 2023-04-22 10:50 | disposition home or self-care (01) ==
LOC: LL.ED 08:15
DX: R53.82 Chronic fatigue, unspecified (principal); R63.4 Abnormal weight loss; I10 Essential (primary) hypertension; E78.00 Pure hypercholesterolemia, unspecified; Z88.2 Allergy status to sulfonamides; Z88.8 Allergy status to other drugs, medicaments and biological substances; Z91.048 Other nonmedicinal substance allergy status
CPT/HCPCS: 36415; 80053; 81003; 83735; 85025; 85610; 86140; 99284